=== PATIENT | male | born 1990 | race Asian ===

== ENCOUNTER 2016-06-24 13:40 | Emergency (ER) | payer OTHER ==
--- NOTE | 2016-06-24 13:52 | EDPHY ---
HPI/HX/ROS/PE/MDM Narrative: CHIEF COMPLAINT: Chest pain, palpitations. HPI: The patient is a 26-year-old male who presents with 5 or 6 days of palpitations. These are described as feeling his heart beat "hard" and feeling like it is skipping beats. The palpitations are constant but worse during the night. He denies alleviating factors. He admits associated chest "heaviness." He believes the symptoms may have started after he used marijuana. He was seen at [facility] where he had a negative ECG, chest x-ray, and blood work. He denies family cardiac history. REVIEW OF SYSTEMS: Aside from elements discussed in the HPI, a comprehensive 10-point review of systems was reviewed and is negative. PMH: Denies. 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 PHYSICAL EXAM: General: Patient is alert, in no acute distress. ENT: Eyes are normal to inspection. ENT inspection normal. Neck: Normal inspection. Full range of motion. Respiratory: No respiratory distress. Breath sounds normal bilaterally. Cardiovascular: Regular rate and rhythm. Strong peripheral pulses. Abdomen: The abdomen is nontender to palpation. There are no peritoneal signs. There are normal bowel sounds. Back: Normal to inspection. No tenderness to palpation. Skin: Normal color. No rash. Warm and dry. Extremities: Normal appearance. Full range of motion. Neuro: Oriented x3. Normal motor function. Normal sensory function. Portions of this note were transcribed by an ED scribe. I personally performed the history, physical exam, and medical decision making; and confirm the accuracy of the information in the transcribed note. ED Course: An IV was established and labs ordered. Chest x-ray and EKG obtained. Study: PA and Lateral Chest X-ray Indication: Chest pain Results: I viewed the images myself on the PACS system. My interpretation of the images is: normal. The radiologist interpretation is pending at the time of this dictation. EKG was ordered and interpreted by myself. Please see mYwindow system for official reading. MDM: This is a young healthy male who presents with several days of palpitations, in setting of history of palpitations diagnosed in [place]. We performed an extensive workup, which is negative for ACS, pericarditis, PNA, PTX or TAD. His ECG reveals frequent APCs. He has no pleuritic chest pain, tachycardia or risk factors to suggest PE. I think the patient is safe for outpatient workup with cardiology and have given him a referral as well as strict return precautions. - Data Points Laboratory Results: Laboratory Results 06/24/16 14:17 06/24/16 14:17 06/24/16 06/24/16 14:17 14:17 WBC 5.27 10^3/uL 10^3/uL (3.80-9.50) RBC 5.51 10^6/uL 10^6/uL (4.40-6.38) Hgb 15.3 g/dL g/dL (13.7-17.5) Hct 46.0 % % (40.0-51.0) MCV 83.5 fL fL (81.5-99.8) MCH 27.8 pg L pg (27.9-34.1) MCHC 33.3 g/dL g/dL (32.4-36.7) RDW 12.7 % % (11.5-15.2) Plt Count 285 10^3/uL 10^3/uL (150-400) MPV 9.0 fL fL (8.7-11.7) Neut % (Auto) 46.9 % % (39.3-74.2) Lymph % (Auto) 40.2 % % (15.0-45.0) [place] % (Auto) 9.1 % % (4.5-13.0) Eos % (Auto) 2.7 % % (0.6-7.6) Baso % (Auto) 0.9 % % (0.3-1.7) Nucleat RBC Rel Count 0.0 % % (0.0-0.2) Absolute Neuts (auto) 2.47 10^3/uL 10^3/uL (1.70-6.50) Absolute Lymphs (auto) 2.12 10^3/uL 10^3/uL (1.00-3.00) Absolute Monos (auto) 0.48 10^3/uL 10^3/uL (0.30-0.80) Absolute Eos (auto) 0.14 10^3/uL 10^3/uL (0.03-0.40) Absolute Basos (auto) 0.05 10^3/uL 10^3/uL (0.02-0.10) Absolute Nucleated RBC 0.00 10^3/uL 10^3/uL (0-0.01) Immature Gran % 0.2 % % (0.0-1.1) Immature Gran # 0.01 10^3/uL 10^3/uL (0.00-0.10) Sodium 142 mEq/L mEq/L (134-144) Potassium 4.7 mEq/L mEq/L (3.5-5.2) Chloride 107 mEq/L mEq/L (97-110) Carbon Dioxide 23 mEq/l mEq/l (22-31) Anion Gap 12 mEq/L mEq/L (8-16) BUN 10 mg/dL mg/dL (7-23) Creatinine 0.7 mg/dL mg/dL (0.7-1.3) Estimated GFR > 60 Glucose 87 mg/dL mg/dL (70-100) Calcium 9.7 mg/dL mg/dL (8.5-10.4) Troponin I Pending Medications Given: Discontinued Medications Sodium Chloride (Ns) 1,000 mls @ 0 mls/hr IV ONCE ONE PRN Reason: Wide Open Stop: 06/24/16 13:54 Last Admin: 06/24/16 14:15 Dose: 1,000 mls General Time Seen by Provider: 06/24/16 13:46 Initial Vital Signs: Initial Vital Signs Temperature (C) 36.6 C 06/24/16 13:40 Heart Rate 76 06/24/16 13:40 Respiratory Rate 18 06/24/16 13:40 Blood Pressure 139/77 H 06/24/16 13:40 O2 Sat (%) 97 06/24/16 13:40 O2 Delivery Mode Room Air Allergies/Adverse Reactions: No Known Allergies Allergy (Unverified 06/24/16 13:46) Home Medications: Medication Instructions Recorded NK [No Known Home Meds] 06/24/16 Departure - Departure Disposition: Home, Routine, Self-Care Clinical Impression: Palpitations Condition: Good Instructions: Palpitations (ED) Additional Instructions: Follow up with Dr. Floyd, cardiology, within one week for reevaluation. You have been provided his telephone number and can call to set up an appointment. Return to the emergency department for any serious worsening of condition. Referrals: Jose Floyd MD [Medical Doctor] - As per Instructions Report Scribed for: Gene Mcclelland Report Scribed by: Ziggy Pedroza Date of Report: 06/24/16 Time of Report: 13:53
[2016-06-24] MEDS ORDERED: NS 1,000 ML IV ONE (13:53)
--- NOTE | 2016-06-24 13:53 | CPEKG ---
Heart Rate: 68 RR Interval: 882 P-R Interval: 113 QRSD Interval: 88 QT Interval: 364 QTC Interval: 388 P [place]: 0 QRS [place]: 65 T Wave [place]: 53 EKG Severity - ABNORMAL ECG - EKG Impression: SINUS RHYTHM EKG Impression: MULTIPLE ATRIAL PREMATURE COMPLEXES Electronically Signed By: Gene Mcclelland 24-Jun-2016 14:50:25
[2016-06-24 14:24] LABS: % IMMATURE GRANULYOCYTES 0.2 % (0.0-1.1); ABSOLUTE IMMATURE GRANULOCYTES 0.01 10^3/uL (0.00-0.10); ADD DIFF? NO; ADD MORPH? NO; ADD SCAN? NO; ATYPICAL LYMPHOCYTE FLAG 50 (0-99); FRAGMENT RBC FLAG 0 (0-99); HEMOGLOBIN 15.3 g/dL (13.7-17.5); LEFT SHIFT FLG 0 (0-99); LIPEMIA HEMOLYSIS FLAG 80 (0-99); MEAN CELL HEMOGLOBIN 27.8 pg (27.9-34.1); MEAN CELL HEMOGLOBIN CONCENTR. 33.3 g/dL (32.4-36.7); MEAN CELL VOLUME 83.5 fL (81.5-99.8); PLATELET CLUMPS FLAG 10 (0-99); PLATELET COUNT 285 10^3/uL (150-400); RED BLOOD CELL COUNT 5.51 10^6/uL (4.40-6.38); RED CELL DISTRIBUTION WIDTH 12.7 % (11.5-15.2)
[2016-06-24 14:52] LABS: ANION GAP 12 mEq/L (8-16); CALCIUM 9.7 mg/dL (8.5-10.4); CARBON DIOXIDE 23 mEq/l (22-31); CHLORIDE 107 mEq/L (97-110); CREATININE 0.7 mg/dL (0.7-1.3); GLOMERULAR FILTRATION RATE > 60; GLUCOSE 87 mg/dL (70-100); POTASSIUM 4.7 mEq/L (3.5-5.2); SODIUM 142 mEq/L (134-144)
[2016-06-24 15:04] LABS: TROPONIN I < 0.012 ng/mL (0-0.034)
[2016-06-24 15:59] VITALS: BP 122/81; PULSE 61; RESP 16; TEMP 98.8; O2SAT 99
== END 2016-06-24 16:15 | disposition home or self-care (01) ==
DX: R00.2 Palpitations (principal)